=== PATIENT | female | born 1965 | race Caucasian/White ===

== ENCOUNTER 2018-10-28 13:16 | Inpatient (IN) | payer BC ==
[~2018-10-28] VITALS: Ht 165.1 cm; Wt 55.0 kg
--- NOTE | 2018-10-28 14:06 | NUR ---
PATIENT TO ROOM VIA WHEELCHAIR. ASSISTED ONTO STRETCHER. PEDRO LUIS FAY INFORMED OF PATIENT STATUS.
--- NOTE | 2018-10-28 15:19 | NUR ---
PORT ACCESSED, BLOOD DRAWN. PT APPEARS PALE AND WEAK, STATES THAT SHE WAS DISCHARGED FROM HOSPITAL IN [place] YESTERDAY.
[2018-10-28 15:34] LABS: HEMATOCRIT 25.8 % (37.0-47.0); HEMOGLOBIN 8.4 g/dl (12.0-16.0); IMMATURE GRANULOCYTES 1.3 % (0.0-5.0); MEAN CELL VOLUME 97.7 fL CALC (80.0-100.0); MEAN CORPUSCULAR HGB 31.8 pG CALC (26.0-32.0); MEAN CORPUSCULAR HGB CONC 32.6 g/L CALC (32.0-36.0); PLATELET COUNT 237 thou/uL (130-400); RED BLOOD COUNT 2.64 mill/uL (4.20-5.60); RED CELL DISTRI WIDTH 18.5 % (11.5-15.5)
[2018-10-28 15:51] LABS: ALBUMIN 2.5 g/dL (3.2-5.0); ALKALINE PHOSPHATASE 385 u/l (38-126); ANION GAP 13 (6-22 (CALC)); BILIRUBIN, TOTAL 0.6 mg/dL (0.0-1.4); BUN 12 mg/dL (7-17); BUN/CREATININE RATIO 23 (12-20 (CALC)); CARBON DIOXIDE 31 mmol/l (22-30); CHLORIDE 96 mmol/l (95-108); CREATININE 0.5 mg/dL (0.5-1.0); GFR > 60 ML/MIN (>=60 (CALC)); GFR FOR AFR.AMER. > 60 ML/MIN (>=60 (CALC)); MANUAL DIFFERENTIAL YES; POTASSIUM 3.6 mmol/l (3.5-5.1); SGOT/AST 34 u/l (14-36); SODIUM 135 mmol/l (137-146); TOTAL PROTEIN 7.1 g/dL (6.3-8.2)
[2018-10-28] MEDS ORDERED: K-DUR/KLOR-CON20 MEQ PO (17:53)
[2018-10-28] MEDS ORDERED: MORPHINE SUL30 M3 PO (17:53)
[2018-10-28] MEDS ORDERED: OMEPRAZOLE10 MG PO (17:54)
[2018-10-28] MEDS ORDERED: MAG OXIDE400 MG PO (17:55)
[2018-10-28] MEDS ORDERED: ELIQUIS5 MG PO (17:55)
[2018-10-28] MEDS ORDERED: [UNRECOGNIZED DRUG - OTHER] PO (17:57)
--- NOTE | 2018-10-28 18:15 | NUR ---
PT TAKEN TO ROOM 283 WITHOUT INCIDENT, REPORT TO SEFERINO.
[2018-10-28 18:25] VITALS: BP 119/75
--- NOTE | 2018-10-28 18:30 | NUR ---
PT. ARRIVED TO THE FLOOR VIA STRETCHER ACCOMPANIED NURSE FROM ER; PT. SETTLED IN BED AND SCHED MEDS GIVEN. VS OBTAINED; PT. DENIES NEEDS AT THIS TIME; CALL LIGHT IS IN REACH.
--- NOTE | 2018-10-28 19:30 | NUR ---
PATIENT RESTING IN BED AT THIS TIME-AWAKE ALERT AND ORIENTEDX3. PATIENT WITH VISITORS AT BEDSIDE. PATIENT WITH IV SITE TO RIGHT UPPER CHEST PORT WITH IVF NS PATENT AND INFUSING AT 75CC/HR. SITE APPEARS HEALTHY AT TH IS TIME. MAXIPIME HUNG ORDERED. 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 JUST FLEW INTO TOWN TODAY FROM [place]-WAS DISCHARGED FROM HOSPITAL IN [facility] YESTERDAY. ORIENTED TO ROOM AND SURROUNDINGS. INSTRUCTED ON USE OF NURSE BRITTANEY LIGHT SYSTEM, TV REMOTE AND PHONE. SAFETY PRECAUTIONS REINFORCED. CALL LIGHT IN REACH. WILL CONT TO MONITOR.
--- NOTE | 2018-10-28 21:40 | NUR ---
PATIENT RESTING IN BED-DR. MCGREGOR CALLED REGUARDING PAIN MANAGEMENT WITH PATIENT. ORDERS RECIEVED. PATIENT MEDICATED WITH MS CONTIN 15MG PO AND WITH PERCOCET 10/325MG PO FOR 10 LUQ ABD PAIN. PATIENT AND BOTH STATES THAT SHE WAS SEEN BY [employer] HELPER A COUPLE OF WEEKS AGO FOR FOOT CARE-BOTH GREAT TOES ARE SLIGHTLY PINK-NO OPEN AREAS, NO DRAINAGE, NO SWELLING NOTED AT THIS TIME. 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 PATIENT STATES THAT SHE IS TO BE SEEN AT [facility] BACK IN [place] ON SUNDAY FOR POSSIBLE FURTHER TREATMENT. SAFETY PRECAUTIONS REINFORCED. CALL LIGHT IN REACH. WILL CONT TO MONITOR.
--- NOTE | 2018-10-29 00:37 | NUR ---
APPEARS SLEEPING AT THIS TIME WITH EYES CLOSED. RESP ARE EVEN AND UNLABORED. IVF PATENT AND INFUSING AT 75CC/HR TO RIGHT UPP PORT SITE-REMAINS HEALTHY AT THIS TIME. CALL LIGHT IN REACH. WILL CONT TO MONITOR.
--- NOTE | 2018-10-29 04:10 | NUR ---
PATIENT RESTING IN BED WATCHING TV AT THIS TIME. WAKE ALERT AND ORIENTEDX3. LAB WORK DRAWN FROM RIGHT UPPER CHEST PORT-GOOD BLOOD RETURN. IVF PATENT AND INFUSING AT 75CC/HR. PATIENT MEDICATED WITH PERCOCET 10/325MG PO FOR 9/10 ON PAIN SCALE. SAFETY PRECAUTIONS REINFORCED. CALL LIGHT IN REACH. WILL CONT TO MONITOR.
[2018-10-29 04:15] VITALS: BP 167/98
[2018-10-29 05:21] LABS: URINE BILIRUBIN - DIPSTICK NEGATIVE (NEGATIVE); URINE BLOOD DIPSTICK NEGATIVE (NEGATIVE); URINE COLOR YELLOW; URINE GLUCOSE - DIPSTICK NEGATIVE (NEGATIVE); URINE KETONE NEGATIVE (NEGATIVE); URINE LEUK ESTERASE NEGATIVE (NEGATIVE); URINE NITRITE - DIPSTICK NEGATIVE (Negative); URINE PROTEIN - DIPSTICK NEGATIVE (NEG-TRACE); URINE UROBILINOGEN - DIPSTICK 0.2 E.U./dL (0.2)
[2018-10-29 05:37] LABS: HEMATOCRIT 26.2 % (37.0-47.0); HEMOGLOBIN 8.5 g/dl (12.0-16.0); MEAN CELL VOLUME 98.1 fL CALC (80.0-100.0); MEAN CORPUSCULAR HGB 31.8 pG CALC (26.0-32.0); MEAN CORPUSCULAR HGB CONC 32.4 g/L CALC (32.0-36.0); NEUT# 20.42 thou/uL (2.00-7.15); RED BLOOD COUNT 2.67 mill/uL (4.20-5.60); RED CELL DISTRI WIDTH 18.5 % (11.5-15.5)
[2018-10-29 06:00] VITALS: BP 135/79
[2018-10-29 06:02] LABS: ALBUMIN 2.2 g/dL (3.2-5.0); ALKALINE PHOSPHATASE 362 u/l (38-126); AMYLASE < 30 u/l (30-110); ANION GAP 11 (6-22 (CALC)); BILIRUBIN, TOTAL 0.6 mg/dL (0.0-1.4); BUN 9 mg/dL (7-17); BUN/CREATININE RATIO 20 (12-20 (CALC)); CARBON DIOXIDE 28 mmol/l (22-30); CHLORIDE 99 mmol/l (95-108); CREATININE 0.5 mg/dL (0.5-1.0); GFR > 60 ML/MIN (>=60 (CALC)); GFR FOR AFR.AMER. > 60 ML/MIN (>=60 (CALC)); LIPASE < 10 u/l (23-300); MAGNESIUM 1.6 mg/dL (1.6-2.3); POTASSIUM 3.7 mmol/l (3.5-5.1); SGOT/AST 26 u/l (14-36); SODIUM 135 mmol/l (137-146); TOTAL PROTEIN 6.4 g/dL (6.3-8.2)
--- NOTE | 2018-10-29 07:00 | NUR ---
RECEIVED REPORT FROM NURSE ANGÉLICA, PATIENT RESTING IN BED, DENIES PAIN AND DISCOMFORT ATH THIS TIME, ONGOING IV OF NORMAL SALINE X75CC/HR VIA IMPLANTED CHEST PORT, EVEN UNLABORT BREATHIG, FEELS WARM AND REDNESS ON BOTH EARS. WILL CHECK TEMPERATURE
[2018-10-29 07:49] VITALS: BP 103/65
--- NOTE | 2018-10-29 10:00 | NUR ---
NOTIFIED DR. HANDY OF NEED FOR IVF ORDER; PER MD HE IS AWAITING TO PLACE FURTHER ORDERS UNTIL PT. IS ROUNDED ON BY HIM.
--- NOTE | 2018-10-29 12:00 | NUR ---
PATIENT RESTING IN BED, ALERT AND ORIENTED EVEN UNLABORED BREATHING, VERBALIZED RELIEF FROM PAIN FROM THE PERCOCET THAT WAS GIVEN AROUND 1032. FAMILY IN ROOM, CALL LIGHT WITHN REACH.
--- NOTE | 2018-10-29 13:20 | NUR ---
SEEN ON ROUND BY DR. HANDY NEW ORDER FOR CTT ABD AND PELVIS AND CT OF CHEST, NEW ORDERS FOR MEGACE FOR APPETITE STIMULANT ORDERED. FAMILY IN ROOM, EXPLAINED THE PLAN OF CARE
--- NOTE | 2018-10-29 13:30 | NUR ---
DR. HANDY IN WITH PT. AND UPDATED ON POC.
--- NOTE | 2018-10-29 15:37 | NUR ---
PATIENT CURRENTLY RESTING IN BED, ALERT AND ORIENTED, AMBULATES WITH WALKER, FAMILY WITH PATIENT, EVEN UNLABORED BREATHING, CONTRAST FOR THE CT LAST DOSE GIVEN AT 1519 FLUIDS TOLERATED. CALL LIGHT AT REACH.
[2018-10-29 15:40] VITALS: BP 102/68
--- NOTE | 2018-10-29 17:59 | NUR ---
PATIENT RESTING IN BED NO DISCOMFORTS NOTED AT THIS TIME, CONTINUOUS ON IV CEFEPIME, CURRENTLY EATING DINNER, CTA CHEST AND AT OF ABDOMENT WOITHOUT CONTRAST DONE. CALL LIGHT WITHIN REACH
[2018-10-29 19:30] VITALS: BP 104/70
--- NOTE | 2018-10-29 20:00 | NUR ---
PATIENT RESTING IN BED AT THIS TIME WITH VISITORS AT BEDSIDE. PATIENT IS AWAKE ALERT AND ORIENTEDX3. PATIENT STATES THAT [place] AND HAD MODERATE AMT OF GREEN LOOSE STOOLS. STILL WEAK BUT STATES THAT HER APPETITE IS IMPROVING. IV SITE TO RIGHT UPPER CHEST PORT WITH IVF NS PATENT AND INFUSING AT 75CC/HR. SITE APPEARS HEALTHY AT THIS TIME. PATIENT STILL WITH LEFT SIDED ABD PAIN-8/10. MEDICATED WITH PERCOCET 10/325MG PO FOR BREAKTHRU PAIN. SAFETY PRECAUTIONS REINFORCED. CALL LIGHT IN REACH. WILL CONT TO MONITOR.
--- NOTE | 2018-10-29 23:00 | NUR ---
PATIENT RESTING IN BED WATCHING TV-NO COMPLAINTS AT THIS TIME. IVF PATENT AND INFUSING AT 75CC/HR VIA RIGHT UPPER CHEST PORT. SITE IS HEALTHY AT THIS TIME. SAFETY PRECAUTIONS REINFORCED. CALL LIGHT IN REACH. WILL CONT TO MONITOR.
[2018-10-30 04:10] VITALS: BP 128/79
--- NOTE | 2018-10-30 04:12 | NUR ---
PATIENT RESTING IN BED-ATTEMPTED TO DRAW LABS FROM RIGHT UPPER CHEST PORT BUT WAS UNABLE TO GET ENOUGH BLOOD FOR SPEC. IVF NS CONT TO INFUSE AT 75CC/HR. PATIENT IS DROWSY WITH NO COMPLAINTS AT THIS TIME SAFETY PRECAUTIONS REINFORCED. CALL LIGHT IN REACH.WILL CONT TO MONITOR.
[2018-10-30 05:47] LABS: HEMATOCRIT 24.4 % (37.0-47.0); HEMOGLOBIN 8.1 g/dl (12.0-16.0); IMMATURE GRANULOCYTES 0.9 % (0.0-5.0); MEAN CELL VOLUME 95.7 fL CALC (80.0-100.0); MEAN CORPUSCULAR HGB 31.8 pG CALC (26.0-32.0); MEAN CORPUSCULAR HGB CONC 33.2 g/L CALC (32.0-36.0); NEUT# 18.99 thou/uL (2.00-7.15); RED BLOOD COUNT 2.55 mill/uL (4.20-5.60); RED CELL DISTRI WIDTH 18.5 % (11.5-15.5)
[2018-10-30 05:51] LABS: ALKALINE PHOSPHATASE 345 u/l (38-126); AMYLASE < 30 u/l (30-110); ANION GAP 10 (6-22 (CALC)); BILIRUBIN, TOTAL 0.6 mg/dL (0.0-1.4); BUN 7 mg/dL (7-17); BUN/CREATININE RATIO 15 (12-20 (CALC)); CARBON DIOXIDE 30 mmol/l (22-30); CHLORIDE 98 mmol/l (95-108); CREATININE 0.4 mg/dL (0.5-1.0); GFR > 60 ML/MIN (>=60 (CALC)); GFR FOR AFR.AMER. > 60 ML/MIN (>=60 (CALC)); LIPASE < 10 u/l (23-300); MAGNESIUM 1.5 mg/dL (1.6-2.3); SGOT/AST 22 u/l (14-36); SODIUM 134 mmol/l (137-146); TOTAL PROTEIN 5.9 g/dL (6.3-8.2)
[2018-10-30 07:30] VITALS: BP 112/68
--- NOTE | 2018-10-30 07:38 | NUR ---
RECEIVED REPORT FROM NURSE LINDSAY, PATIENT ALERT AND ORIENTED, ABLE TO MAKE NEEDS KNOWN, EVEN UNLABORED BREATH.
--- NOTE | 2018-10-30 08:15 | NUR ---
PATIENT SITTING IN BED, EATING BREAKFAST STARTED TO GET NAUSEOUS PRN IV ZOFRAN GIVEN WILL FOLLOW UP.
--- NOTE | 2018-10-30 09:30 | NUR ---
PATIENT STATED RELIEF FROM NAUSEA, COMPLAINED OF PAIN ON ABDOMEN BOTH RT AND LEFT LOWER QUADRANT, BOWEL SOUNDS HYPERACTIVE, PATIENT STATING HAVING 1 LOOSE BOWEL MOVEMENT, REINFORCED ON INCREASING FLUIDS TOLERATED, INFORMED THAT HAVING WATER STOOL IS A SIDE EFFECT OF THE CONTRAST THAT WAS USED FOR [facility]AN YESTERDAY.
--- NOTE | 2018-10-30 12:25 | NUR ---
PATIENT SEEN ON ROUNDS BY DR. HANDY, DISCUSSED THE PLAN OF CARE AND CONTINUING ANTIBIOTIC AT THIS TIME, DR MADE AWARE OF PATIENTS POTASSIUM LEVEL 3.0MEQ, NAUSEA AND LOOSE BM. AWAITING FOR FURTHER ORDER AT THIS TIME.
[2018-10-30 15:35] VITALS: BP 99/63
--- NOTE | 2018-10-30 16:00 | NUR ---
PATIENT RESTING IN BED, WITH EVEN UNLABORED BREATHING, STILL HAVING LOOSE WATERY STOOL, FLUIDS OFFERED, FAMILY IN ROOM. CALL LIGHT AT REACH
--- NOTE | 2018-10-30 16:27 | NUR ---
NEW ORDER FOR POTASSIUM RECIEVED, IV POTASSIUM STARTED, INFUSING WELL, PATIET DENIES ANY DISCOMFORTS AT THIS TIME, FAMILY IN ROOM. CALL LIGHT AT REACH
[2018-10-30 19:20] VITALS: BP 113/77
--- NOTE | 2018-10-30 19:54 | NUR ---
PT. RESTING IN BED TALKING ON THE PHONE; NO DISTRESS NOTED. ASSESSMENT COMPLETED; IV SITE PATENT AND SL; FLUSHES WELL. DENEIS NEEDS/PAIN. INSTRUCTED TO CALL FOR ANY NEEDS; CALL LIGHT IS IN REACH.
--- NOTE | 2018-10-30 20:06 | NUR ---
PT. RESTING IN BED WITH NO DISTRESS NOTED; DENIES NEEDS/PAIN; ASSESSMENT COMPELTED; FAMILY IN AT BEDSIDE; BILATERAL HEELS ELEVATED ONTO PILLOW; INSTRUCTED TO CALL FOR ANY NEEDS; CALL LIGHT IS IN REACH; WILL CONTINUE TO MONITOR.
--- NOTE | 2018-10-30 22:41 | NUR ---
PT. RESTING IN BED WITH NO DISTRESS NOTED; DENIES NEEDS; CALL LIGHT IS IN REACH.
--- NOTE | 2018-10-30 23:36 | NUR ---
PT. SITTING UP IN BED WITH NO DISTRESS NOTED; DENIES NEEDS/PAIN; ENCOURAGED TO CALL FOR ANY NEEDS; CALL LIGHT IS IN REACH.
--- NOTE | 2018-10-31 02:18 | NUR ---
PT. RESTING IN BED WITH EYES CLOSED; NO DISTRESS NOTED; RESP EVEN AND UNLABORED. CALL LIGHT IS IN REACH.
[2018-10-31 04:20] VITALS: BP 115/68
--- NOTE | 2018-10-31 05:20 | NUR ---
PT. C/O LEFT SIDED ABD PAIN 05/31; MEDICATED WITH ORDERED PERCOCET AND JUICE GIVEN; DENIES FURTHER NEEDS; CALL LIGHT IS IN REACH.
[2018-10-31 05:35] LABS: HEMATOCRIT 24.2 % (37.0-47.0); HEMOGLOBIN 8.1 g/dl (12.0-16.0); IMMATURE GRANULOCYTES 1.1 % (0.0-5.0); MEAN CELL VOLUME 95.3 fL CALC (80.0-100.0); MEAN CORPUSCULAR HGB 31.9 pG CALC (26.0-32.0); MEAN CORPUSCULAR HGB CONC 33.5 g/L CALC (32.0-36.0); NEUT# 20.56 thou/uL (2.00-7.15); RED BLOOD COUNT 2.54 mill/uL (4.20-5.60); RED CELL DISTRI WIDTH 18.4 % (11.5-15.5)
[2018-10-31 06:06] LABS: ANION GAP 10 (6-22 (CALC)); BILIRUBIN, TOTAL 0.7 mg/dL (0.0-1.4); BUN 6 mg/dL (7-17); BUN/CREATININE RATIO 17 (12-20 (CALC)); CARBON DIOXIDE 29 mmol/l (22-30); CHLORIDE 98 mmol/l (95-108); CREATININE 0.4 mg/dL (0.5-1.0); GFR > 60 ML/MIN (>=60 (CALC)); GFR FOR AFR.AMER. > 60 ML/MIN (>=60 (CALC)); MAGNESIUM 1.5 mg/dL (1.6-2.3); POTASSIUM 3.5 mmol/l (3.5-5.1); SGOT/AST 35 u/l (14-36); SODIUM 134 mmol/l (137-146)
[2018-10-31 06:10] LABS: ALKALINE PHOSPHATASE 539 u/l (38-126)
--- NOTE | 2018-10-31 07:01 | NUR ---
REPORT RECEIVED BY TERI. PT IS RESTING IN BED WITH NO S/S OF DISTRESS NOTED. PT DENIES NEEDS AT THIS TIME. CALL LIGHT IN REACH.
[2018-10-31 07:42] VITALS: BP 113/74
--- NOTE | 2018-10-31 08:37 | NUR ---
ASSESSMENT DONE. RESPS EVEN AND UNLABORED. PT IS A&O X3 BUT FORGETFUL AT TIMES. MEDICATED PT WITH MORPHINE FOR PAIN LUQ 05/31 SEE EMAR. NS 75ML/HR INFUSING WELL SAFETY PRECAUTIONS REINFORCED AND CALL LIGHT IN REACH. IN ROOM.
--- NOTE | 2018-10-31 11:47 | NUR ---
MEDICATED PT WITH PERCOCET IN LUQ 05/31. PT STATED TRYING TO EAT LUNCH. PT DENIES ANY OTHER NEEDS AT THIS TIME. CALL LIGHT IN REACH.
[2018-10-31 15:40] VITALS: BP 103/64
--- NOTE | 2018-10-31 16:00 | NUR ---
ASSISTED PT TO THE BSC VOID RAISA URINE. THEN BACK TO BED. PT DENIES ANY OTHER NEEDS AT THIS TIME. CALL LIGHT IN REACH. IN ROOM
[2018-10-31 19:35] VITALS: BP 105/71
--- NOTE | 2018-10-31 22:00 | NUR ---
pt medicated as orders provide, assessment completed at this time. lung sounds are clear, abd distended soft and tender throughout, skin/pale intact, pressure ulcer reported to coccyx area/dressing in place, iv fluids running into accessed port. pt appears very weak, was unable to reposition self in bed/very limited movement, assisted in using bsc/very weak ambulation but was able w/1x assist. will continue to monitor, call light at bedside.
--- NOTE | 2018-11-01 00:26 | NUR ---
PT MEDICATED ORDERS PROVIDE AND ASSISTED TO BSC, 200CC DARK YELLOW ODOROUS URINE OUTPUT. PT VERY WEAK BUT ABLE TO GET FROM BED TO BSC W/1X ASSIST. DENIES ANY OTHER NEEDS AT THIS TIME. CALL LIGHT AT BEDSIDE.
--- NOTE | 2018-11-01 03:15 | NUR ---
PT SLEEPING, NO S/O DISTRESS NOTED. CALL LIGHT AT BEDSIDE.
[2018-11-01 04:00] VITALS: BP 90/57
[2018-11-01 05:09] LABS: HEMOGLOBIN 7.7 g/dl (12.0-16.0); IMMATURE GRANULOCYTES 2.3 % (0.0-5.0); MEAN CELL VOLUME 97.2 fL CALC (80.0-100.0); MEAN CORPUSCULAR HGB 31.2 pG CALC (26.0-32.0); MEAN CORPUSCULAR HGB CONC 32.1 g/L CALC (32.0-36.0); PLATELET COUNT 161 thou/uL (130-400); RED BLOOD COUNT 2.47 mill/uL (4.20-5.60); RED CELL DISTRI WIDTH 18.8 % (11.5-15.5)
[2018-11-01 05:29] LABS: ALBUMIN 1.9 g/dL (3.2-5.0); ALKALINE PHOSPHATASE 525 u/l (38-126); ANION GAP 11 (6-22 (CALC)); BUN 8 mg/dL (7-17); BUN/CREATININE RATIO 20 (12-20 (CALC)); CARBON DIOXIDE 29 mmol/l (22-30); CHLORIDE 98 mmol/l (95-108); CREATININE 0.4 mg/dL (0.5-1.0); GFR > 60 ML/MIN (>=60 (CALC)); GFR FOR AFR.AMER. > 60 ML/MIN (>=60 (CALC)); MAGNESIUM 1.6 mg/dL (1.6-2.3); POTASSIUM 3.8 mmol/l (3.5-5.1); SGOT/AST 40 u/l (14-36); SODIUM 134 mmol/l (137-146); TOTAL PROTEIN 5.8 g/dL (6.3-8.2)
[2018-11-01 05:33] LABS: MANUAL DIFFERENTIAL YES
[2018-11-01 05:43] LABS: HYPOCHROMIA MODERATE; MICROCYTOSIS FEW; PLATELET ESTIMATE NORMAL
[2018-11-01 05:47] LABS: STOMATOCYTE FEW
--- NOTE | 2018-11-01 06:13 | NUR ---
CRITICAL HIGH WBC CALLED IN, PHYSICIAN NOTIFIED, NO NEW ORDERS AT THIS TIME.
--- NOTE | 2018-11-01 06:20 | NUR ---
PT MEDICATED FOR PAIN 05/31 AND IV ANTIBIOTIC THERAPY ORDERED. DENIES ANY OTHER NEEDS AT THIS TIME. CALL LIGHT AT BEDSIDE AND PT ENCOURAGED TO CALL IF ANY NEEDS ARISE.
[2018-11-01 08:02] VITALS: BP 118/78
--- NOTE | 2018-11-01 09:00 | NUR ---
PT AMBULATING IN THE HALLWAYS WITH HER WALKER, PHARMACIST APPRENTICE AND AT SIDE. PT AMBULATING WITH SLOW STEADY GAIT. PT BACK IN ROOM SITTING IN THE RECLINER. ASSESSMENT DONE. NS 75ML/HR INFUSING WELL. SAFETY PRECAUTIONS REINFORCED AND CALL LIGHT IN REACH.
--- NOTE | 2018-11-01 11:44 | NUR ---
DR. HANDY AND PEDRO LUIS MAYS AT BEDSIDE TO ASSESS PT.
[2018-11-01] MEDS ORDERED: DOXYCYC MONO100 M2 PO (12:09)
[2018-11-01] MEDS ORDERED: MEGACE40 MG PO (12:09)
--- NOTE | 2018-11-01 15:06 | NUR ---
Discharge instructions given. Patient verbalizes understanding of same. Discharged in stable condition via Wheelchair to Home with spouse. All belongings sent with pt.
== END 2018-11-01 15:21 | disposition home or self-care (01) | DRG 193 ==
LOC: ED 13:16 → ED-I 16:56 → ED 17:27 → MS2 17:28
PROVIDERS: ADMIT Internal Medicine Nephrology; ATTEND Internal Medicine Nephrology
DX: J18.9 Pneumonia, unspecified organism (principal); D61.810 Antineoplastic chemotherapy induced pancytopenia; C25.9 Malignant neoplasm of pancreas, unspecified; C78.7 Secondary malignant neoplasm of liver and intrahepatic bile duct; C78.00 Secondary malignant neoplasm of unspecified lung; C77.2 Secondary and unspecified malignant neoplasm of intra-abdominal lymph nodes; E46 Unspecified protein-calorie malnutrition; E86.0 Dehydration; F41.9 Anxiety disorder, unspecified; T45.1X5A Adverse effect of antineoplastic and immunosuppressive drugs, initial encounter; I95.9 Hypotension, unspecified; Z92.21 Personal history of antineoplastic chemotherapy; Z86.718 Personal history of other venous thrombosis and embolism; Z79.01 Long term (current) use of anticoagulants; Z68.20 Body mass index [BMI] 20.0-20.9, adult
CPT/HCPCS: J0692; Q9967